=== PATIENT | male | born 1955 | race African-American/Black ===

== ENCOUNTER 2024-04-26 10:07 | Inpatient (IN) | payer MEDICAID ==
[~2024-04-26] VITALS: Ht 182.9 cm; Wt 74.8 kg
[2024-04-26] MEDS: IV NS 0.9% 1,000 ML BAG IV ONE (10:28)
[2024-04-26 10:51] LABS: BASOPHILS % (AUTO) 0.1 % (0.0-2.0); EOSINOPHILS # (AUTO) 0.1 K/uL (0.0-0.7); EOSINOPHILS % (AUTO) 1.9 % (0.0-6.0); HEMATOCRIT 45 % (39-51); HEMOGLOBIN 14.5 g/dL (13.5-17.5); LYMPHOCYTES # (AUTO) 1.8 K/uL (0.8-4.8); LYMPHOCYTES % (AUTO) 41.3 % (20.0-44.0); MEAN CORPUSCULAR HEMOGLOBIN 26 PG (26.0-33.0); MEAN CORPUSCULAR HGB CONC 32 g/dl (31.0-36.0); MEAN CORPUSCULAR VOLUME 82 fL (80-96); MONOCYTES # (AUTO) 0.4 K/uL (0.1-1.30); MONOCYTES % (AUTO) 9.1 % (2.0-12.0); NEUTROPHILS # (AUTO) 2.1 K/uL (1.8-8.9); NEUTROPHILS % (AUTO) 47.6 % (43.0-81.0); PLATELET COUNT (AUTO) 126 K/uL (150-450); RED BLOOD CELL COUNT(AUTO) 5.51 MIL/uL (4.5-6.0); RED CELL DISTRIBUTION WIDTH 14.8 % (11.5-15.0); WHITE BLOOD COUNT (AUTO) 4.4 K/uL (4.3-11.0)
[2024-04-26 10:59] LABS: CALCIUM, SERUM 8.8 mg/dL (8.5-10.1); CARBON DIOXIDE 25 mmol/L (21-32); CHLORIDE 108 mmol/L (98-107); GLUCOSE 84 mg/dL (74-106); POTASSIUM 3.4 mmol/L (3.5-5.1); SODIUM SERUM 143 mmol/L (136-145); UREA NITROGEN, BLOOD 16 mg/dL (7-18)
[2024-04-26 11:00] LABS: SERUM AMMONIA 32 umol/L (11-32)
[2024-04-26 11:01] LABS: INR 1.07 (0.91-1.10); PARTIAL THROMBOPLASTIN TIME 26.5 SEC (24.3-34.3); PROTHROMBIN TIME 11.3 SECS (9.2-11.1)
[2024-04-26 11:06] LABS: LACTIC ACID 1.9 mmol/L (0.4-2.0)
[2024-04-26 11:13] LABS: ALANINE AMINOTRANSFERASE 28 U/L (12-78); ALBUMIN 3.6 g/dL (3.4-5.0); ALCOHOL, BLOOD < 3 mg/dL (0-10); ALKALINE PHOSPHATASE 73 U/L (46-116); ASPARTATE AMINOTRANSFERASE 12 U/L (15-37); BILIRUBIN,DIRECT 0.2 mg/dL (0.0-0.2); BILIRUBIN,TOTAL 0.8 mg/dL (0.2-1.0)
[2024-04-26 11:15] LABS: ACETAMINOPHEN <10 ug/ml (10-30); SALICYLATE < 0.2 mg/dL (2.8-20.0)
[2024-04-26] MEDS: VANCOMYCIN 1 GM in IV D5W 250 ML IV ONE (11:30)
[2024-04-26 11:49] LABS: APPEARANCE,URINE CLEAR (CLEAR); BILIRUBIN,URINE NEGATIVE (NEGATIVE); BLOOD, URINE NEGATIVE Ery/uL (NEGATIVE); COLOR,URINE YELLOW (YELLOW); KETONES,URINE NEGATIVE (NEGATIVE); LEUKOCYTE ESTERASE ,URINE NEGATIVE (NEGATIVE); NITRITE, URINE NEGATIVE (NEGATIVE); PH,URINE 5.5 (5.0-8.0); PROTEIN,URINE NEGATIVE (NEGATIVE); UGLUCOSE 3+ mg/dL (NEGATIVE)
[2024-04-26 12:09] LABS: AMPHETAMINE, URINE NEGATIVE (NEGATIVE); BARBITURATE, URINE NEGATIVE (NEGATIVE); CANNABINOID, URINE NEGATIVE (NEGATIVE); OPIATE, URINE NEGATIVE (NEGATIVE); PHENCYCLIDINE SCREEN,URINE NEGATIVE (NEGATIVE)
[2024-04-26 12:15] LABS: BENZODIAZEPINE, URINE POSITIVE (NEGATIVE); COCCAINE, URINE POSITIVE (NEGATIVE)
[2024-04-26 12:19] LABS: ADD URINE CULTURE NO; BACTERIA,URINE Few /HPF (None Seen); RBC,URINE 0-2 /HPF (0-2); SQUAMOUS EPITHELIAL CELL,UR Few /HPF (None Seen); WBC,URINE 0-2 /HPF (0-3)
[2024-04-26] MEDS ORDERED: MAGNESIUM HYDROXIDE 30 ML UDC PO PRN (13:00)
[2024-04-26] MEDS ORDERED: Z GUARD REMEDY 4 OZ OINT TP PRN (13:00)
[2024-04-26] MEDS ORDERED: ACETAMINOPHEN 325 MG TABLET PO PRN (13:00)
[2024-04-26] MEDS ORDERED: ZOLPIDEM TARTRATE 5 MG TABLET PO PRN (13:00)
[2024-04-26] MEDS ORDERED: MAG HYDROX/AL HYDROX/SIMETH 30 ML UDC PO PRN (13:00)
[2024-04-26] MEDS ORDERED: ONDANSETRON HCL/PF 4 MG/2 ML VIAL IVP PRN (13:00)
[2024-04-26] MEDS: ENOXAPARIN SODIUM 40 MG/0.4 ML DISP.SYRIN SQ SCH (13:27)
[2024-04-26] MEDS: PIPERACILLIN /TAZOBACTAM 3.375 G in IV D5W 50 ML IV ONE (13:34)
[2024-04-26] MEDS: VANCOMYCIN 1 GM in IV D5W 250ml IV ONE (15:02)
[2024-04-26] MEDS: ASPIRIN 325 MG TABLET PO SCH (15:16)
[2024-04-26 16:00] VITALS: BP 144/86; TEMP 97.5; O2SAT 96
[2024-04-26] MEDS: POTASSIUM CHLORIDE 20 MEQ TAB.PRT.SR PO ONE (16:31)
[2024-04-26] MEDS: ZOSYN IVPB 3.375 G in IV D5W 50ml IV SCH (19:44)
[2024-04-26 20:00] VITALS: BP 156/93; TEMP 98.1; O2SAT 98
[2024-04-27] VITALS: BP 145/92; TEMP 98; O2SAT 98
[2024-04-27] MEDS: VANCOMYCIN 1 GM in IV D5W 250ml IV SCH (02:02)
[2024-04-27 04:00] VITALS: BP 139/102; TEMP 97.5; O2SAT 95
[2024-04-27 04:58] VITALS: BP 139/102; TEMP 97.5; O2SAT 95
[2024-04-27 08:01] LABS: BASOPHILS % (AUTO) 0.5 % (0.0-2.0); EOSINOPHILS # (AUTO) 0.1 K/uL (0.0-0.7); EOSINOPHILS % (AUTO) 2.4 % (0.0-6.0); HEMATOCRIT 42 % (39-51); HEMOGLOBIN 13.9 g/dL (13.5-17.5); LYMPHOCYTES # (AUTO) 0.9 K/uL (0.8-4.8); MEAN CORPUSCULAR HEMOGLOBIN 26 PG (26.0-33.0); MEAN CORPUSCULAR HGB CONC 33 g/dl (31.0-36.0); MEAN CORPUSCULAR VOLUME 79 fL (80-96); MONOCYTES # (AUTO) 0.3 K/uL (0.1-1.30); MONOCYTES % (AUTO) 10.2 % (2.0-12.0); NEUTROPHILS % (AUTO) 60.9 % (43.0-81.0); PLATELET COUNT (AUTO) 116 K/uL (150-450); RED BLOOD CELL COUNT(AUTO) 5.35 MIL/uL (4.5-6.0); RED CELL DISTRIBUTION WIDTH 14.5 % (11.5-15.0); WHITE BLOOD COUNT (AUTO) 3.3 K/uL (4.3-11.0)
[2024-04-27] MEDS: PANTOPRAZOLE 40 MG TABLET.DR PO SCH (08:28)
[2024-04-27 08:40] LABS: CALCIUM, SERUM 8.3 mg/dL (8.5-10.1); MAGNESIUM 1.9 mg/dL (1.8-2.4); PHOSPHORUS 3.6 mg/dL (2.5-4.9); POTASSIUM 3.4 mmol/L (3.5-5.1)
[2024-04-27 09:11] LABS: THYROID STIMULATING HORMONE 0.8 uIU/mL (0.358-3.74)
[2024-04-27] MEDS ORDERED: IV NS 0.9% 250 ML IV ONE (10:04)
[2024-04-27] MEDS ORDERED: IOHEXOL-350 100 ML VIAL IV ONE (10:04)
[2024-04-27] MEDS ORDERED: CT SWABBABLE VALVE TRANS SET 1 EA INFUS.SET MC ONE (10:04)
[2024-04-27] MEDS: POTASSIUM CHLORIDE 20 MEQ TAB.PRT.SR PO SCH (10:08)
[2024-04-27] MEDS ORDERED: GADOTERATE MEGLUMINE 10 MMOL/20 ML VIAL IV ONE (14:10)
[2024-04-27 20:00] VITALS: BP 141/73; TEMP 98.1; O2SAT 93; O2SAT 95
[2024-04-28 07:25] LABS: BASOPHILS % (AUTO) 0.2 % (0.0-2.0); EOSINOPHILS # (AUTO) 0.1 K/uL (0.0-0.7); EOSINOPHILS % (AUTO) 1.7 % (0.0-6.0); HEMATOCRIT 44 % (39-51); HEMOGLOBIN 14.7 g/dL (13.5-17.5); LYMPHOCYTES # (AUTO) 1.6 K/uL (0.8-4.8); LYMPHOCYTES % (AUTO) 34.3 % (20.0-44.0); MEAN CORPUSCULAR HEMOGLOBIN 26 PG (26.0-33.0); MEAN CORPUSCULAR HGB CONC 33 g/dl (31.0-36.0); MEAN CORPUSCULAR VOLUME 79 fL (80-96); MONOCYTES # (AUTO) 0.5 K/uL (0.1-1.30); NEUTROPHILS # (AUTO) 2.5 K/uL (1.8-8.9); NEUTROPHILS % (AUTO) 53.8 % (43.0-81.0); PLATELET COUNT (AUTO) 128 K/uL (150-450); RED BLOOD CELL COUNT(AUTO) 5.59 MIL/uL (4.5-6.0); RED CELL DISTRIBUTION WIDTH 14.8 % (11.5-15.0); WHITE BLOOD COUNT (AUTO) 4.6 K/uL (4.3-11.0)
[2024-04-28 08:52] LABS: CALCIUM, SERUM 8.1 mg/dL (8.5-10.1); CREATININE 1.1 mg/dL (0.6-1.3); POTASSIUM 3.6 mmol/L (3.5-5.1)
[2024-04-28] MEDS: ASPIRIN 81 MG TAB.CHEW PO SCH (10:30)
[2024-04-28] MEDS: CLOPIDOGREL BISULFATE 75 MG TABLET PO SCH (10:56)
[2024-04-28] MEDS ORDERED: AMOX-427 PO (12:03)
[2024-04-28] MEDS ORDERED: CLOP75TA15 PO (12:03)
[2024-04-28] MEDS ORDERED: ASPI-1169 PO (12:03)
== END 2024-04-28 14:45 | disposition home or self-care (01) | DRG 45 ==
LOC: ER 10:10 → TELE 12:13 → MED 04-28 14:43
PROVIDERS: ADMIT Student in an Organized Health Care Education/Training Program; ATTEND Student in an Organized Health Care Education/Training Program
DX: I63.89 Other cerebral infarction (principal); G93.49 Other encephalopathy; I50.32 Chronic diastolic (congestive) heart failure; I11.0 Hypertensive heart disease with heart failure; K04.7 Periapical abscess without sinus; E87.6 Hypokalemia; E11.9 Type 2 diabetes mellitus without complications; Z79.82 Long term (current) use of aspirin; R29.701 NIHSS score 1
CPT/HCPCS: 36415; 70450-TC; 70496-TC; 70498-TC; 70553-TC; 71045-TC; 80048-TC; 80061-TC; 80076-TC; 80202-TC; 81001; 82140-TC; 82962-TC; 83605-TC; 83735-TC; 84100-TC; 84443-TC; 84484-TC; 85025-TC; 85730-TC; 87040-TC; 87081-TC; 87086-TC; 92507-TC; 92521; 93307-TC; 97110-TC; 97112-TC; 97116-TC; 97530-TC; 97535-TC; A4223; A9575; G0378; G0480; J1650; J2543; J3370; J7050; J7060; Q9967